=== PATIENT | male | born 1975 | race Two or more races ===

== ENCOUNTER 2021-07-16 10:11 | Emergency (ER) | payer MEDICAID, OTHER ==
[~2021-07-16] VITALS: Ht 185.4 cm; Wt 134.7 kg
[2021-07-16 10:49] VITALS: BP 134/86
[2021-07-16] MEDS ORDERED: IBUP800T27 PO (11:30)
[2021-07-16] MEDS ORDERED: cefTRIAXone SOD 1,000 MG VL IM ONE (11:30)
[2021-07-16] MEDS ORDERED: CEPH-509 PO (11:30)
[2021-07-16] MEDS ORDERED: SULF400T11 PO (11:30)
[2021-07-16] MEDS ORDERED: LIDOCAINE 1% HCL (LOCAL ANESTH.) INJ 20ML MDV IJ ONE (11:45)
== END 2021-07-16 11:50 | disposition home or self-care (01) ==
LOC: ER 10:11
DX: L03.116 Cellulitis of left lower limb (principal); E66.01 Morbid (severe) obesity due to excess calories; Z68.39 Body mass index [BMI] 39.0-39.9, adult
CPT/HCPCS: 93971; 96372; 99284; J0696; J2001